=== PATIENT | male | born 1965 | race Caucasian/White ===

== ENCOUNTER 2018-09-26 02:12 | Outpatient (CLI) | payer MEDICARE, MEDICAID | END 2018-09-26 23:59 | disposition home or self-care (01) | LOC: DIABETIC 02:12 | PROVIDERS: ATTEND Internal Medicine | DX: E11.65 Type 2 diabetes mellitus with hyperglycemia (principal); E11.40 Type 2 diabetes mellitus with diabetic neuropathy, unspecified; E11.319 Type 2 diabetes mellitus with unspecified diabetic retinopathy without macular edema; E11.21 Type 2 diabetes mellitus with diabetic nephropathy; E11.43 Type 2 diabetes mellitus with diabetic autonomic (poly)neuropathy; K31.84 Gastroparesis; I11.0 Hypertensive heart disease with heart failure; I50.9 Heart failure, unspecified; R63.4 Abnormal weight loss; E78.5 Hyperlipidemia, unspecified; I67.9 Cerebrovascular disease, unspecified; I25.2 Old myocardial infarction; J44.9 Chronic obstructive pulmonary disease, unspecified | CPT/HCPCS: G0108 ==

== ENCOUNTER 2020-05-12 09:00 | Day surgery (SDC) | payer MEDICARE, MEDICAID ==
[~2020-05-12] VITALS: Ht 198.1 cm; Wt 177.3 kg
[2020-05-12 09:12] VITALS: BP 113/71
[2020-05-12] MEDS ORDERED: ASPI-611 PO (09:24)
[2020-05-12] MEDS ORDERED: OMEP40CA13 PO (09:25)
[2020-05-12] MEDS ORDERED: FLO0.4C PO (09:26)
[2020-05-12] MEDS ORDERED: CHOL20002 PO (09:27)
[2020-05-12] MEDS ORDERED: POTA8CAP20 PO (09:28)
[2020-05-12] MEDS ORDERED: ATOR80TA PO (09:28)
[2020-05-12] MEDS ORDERED: ALB0.5UD IH (09:29)
[2020-05-12] MEDS ORDERED: METF500T PO (09:29)
[2020-05-12] MEDS ORDERED: FURO-150 PO (09:30)
[2020-05-12] MEDS ORDERED: DULO30CA52 PO (09:30)
[2020-05-12] MEDS ORDERED: fentaNYL/PF 50MCG/1 ML 2ML syringe ONE (10:28)
[2020-05-12] MEDS ORDERED: MIDAZolam 1mg/ml 10ml vial ONE (10:28)
[2020-05-12 11:00] VITALS: BP 149/66
[2020-05-12 11:10] VITALS: BP 118/58
[2020-05-12 11:20] VITALS: BP 111/82
== END 2020-05-12 11:35 | disposition home or self-care (01) ==
LOC: GI LAB 09:00
PROVIDERS: ATTEND Internal Medicine Gastroenterology
DX: Z12.11 Encounter for screening for malignant neoplasm of colon (principal); K64.8 Other hemorrhoids
CPT/HCPCS: 45378; J2250; J3010; J7040; 99152; 99153; A4620

== ENCOUNTER 2020-07-13 07:56 | Inpatient (IN) | payer MEDICARE, MEDICAID ==
[2020-07-06 11:07] LABS: CLARITY,URINE SLIGHTLY CLOUDY (Clear); COLOR,URINE YELLOW (Yellow); GLUCOSE, URINE NEGATIVE (Neg); KETONES,URINE NEGATIVE (Neg); LEUKOCYTE ESTERASE ,URINE NEGATIVE (Neg); NITRITES, URINE NEGATIVE (Neg); OCCULT BLOOD,URINE NEGATIVE (Neg); PH,URINE 5.5 (4.8-8.0); PROTEIN,URINE NEGATIVE (Neg); UROBILINOGEN,URINE 0.2 E.U/dL (0.2-1.0)
[2020-07-06 11:08] LABS: BASOPHILS # (AUTO) 0.1 X10'3 (0-0.2); BASOPHILS % (AUTO) 0.9 % (0-1); EOSINOPHILS # (AUTO) 0.1 X10'3 (0-0.9); EOSINOPHILS % (AUTO) 1.4 % (0-6); LYMPHOCYTES # (AUTO) 2.2 X10'3 (1.1-4.8); LYMPHOCYTES % (AUTO) 26.3 % (21-51); MEAN CORPUSCULAR HEMOGLOBIN 30.6 PG (27.0-31.0); MEAN CORPUSCULAR HGB CONC 33.8 g/dL (33.0-36.5); MEAN CORPUSCULAR VOLUME 90.5 FL (78-98); MONOCYTES # (AUTO) 0.6 X10'3 (0-0.9); MONOCYTES % (AUTO) 7.4 % (2-12); NEUTROPHILS # (AUTO) 5.3 X10'3 (1.8-7.7); PRE OP HEMATOCRIT 49.7 % (42.0-52.0); PRE OP HEMOGLOBIN 16.8 g/dL (14.0-17.9); PRE OP PLATELET COUNT 251 X10'3 (140-440); RED BLOOD COUNT 5.49 X10'6 (4.70-6.10); RED CELL DISTRIBUTION WIDTH 13.7 % (11.5-14.5)
[2020-07-06 11:18] LABS: PRE OP INR 0.9 INR; PRE OP PROTIME 9.7 SECONDS (9.0-12.0)
[2020-07-06 11:19] LABS: ALBUMIN 3.8 G/DL (3.4-5.0); ALKALINE PHOSPHATASE 90 IU/L (46-116); BLOOD UREA NITROGEN 14 MG/DL (7-18); BUN/CREATININE RATIO 13.2 (5.4-32.0); CALCIUM 9.5 MG/DL (8.5-10.1); CHLORIDE 103 MMOL/L (99-107); CREATININE 1.06 MG/DL (0.60-1.10); PRE OP ALT 30 U/L (30-65); PRE OP ANION GAP 6 (8-16); PRE OP AST 15 U/L (10-37); PRE OP BILIRUB, TOTAL 0.5 MG/DL (0.0-1.0); PRE OP GLUCOSE 161 MG/DL (70-104); PRE OP POTASSIUM 4.4 MMOL/L (3.4-5.1); PRE OP SODIUM 137 MMOL/L (135-145); TOTAL CARBON DIOXIDE 27.6 MMOL/L (24-32); TOTAL PROTEIN 7.6 G/DL (6.4-8.2); eGFR 73 ML/MIN
[2020-07-06 11:21] LABS: UA COLLECTION TYPE CLN CATCH MIDSTREAM
[2020-07-06 11:22] LABS: BACTERIA,URINE NONE SEEN /HPF (Neg); HYALINE CASTS 0-3 /LPF (NEGATIVE); MUCUS STRANDS FEW /LPF (Neg); RBC,URINE NONE SEEN /HPF (0-2); SQUAMOUS EPITHELIAL CELL,UR FEW /LPF (FEW); WBC,URINE NONE SEEN /HPF (0-4)
[2020-07-13] VITALS (18 sets, daily range): BP systolic 120–164; BP diastolic 64–102
[~2020-07-13] VITALS: Ht 198.1 cm; Wt 181.4 kg
[~2020-07-13 07:56] MED LIST: ALB0.5UD IH; ATOR80TA PO; CHOL20002 PO; DOCU-267 PO; DULO30CA52 PO; FLO0.4C PO; FURO-150 PO; METF500T PO; OMEP-50 PO; PHEN105C47 PO; POTA8CAP20 PO; albuterol 2.5 MG/3 ML nebule NEB ONE; ceFOXitin sod/dextrose 2g/50ml 50 ML IV ONE; famotidine 20mg tablet PO ONE; ringers solution, lacted 1,000 ML IV SCH
[2020-07-13] MEDS ORDERED: BUPIVAcaine/PF 2.5 mg/ml (0.25%) 30ml vial ONE (11:02)
[2020-07-13] MEDS ORDERED: fentaNYL /PF 50mcg/ml 5ml ampule ONE (12:21)
[2020-07-13] MEDS ORDERED: midazolam 2 mg/2 ml injection ONE (12:21)
[2020-07-13] MEDS ORDERED: sevoflurane 250ml liquid IH ONE (12:35)
[2020-07-13] MEDS ORDERED: ondansetron/PF 4mg/2ml inj ONE (12:35)
[2020-07-13] MEDS ORDERED: ondansetron/PF 4mg/2ml inj IV PRN (13:30)
[2020-07-13] MEDS ORDERED: morphine 2 MG/ML inj. syringe IV PRN (13:30)
[2020-07-13] MEDS ORDERED: proCHLORperazine 10 MG/2 ml inj IV PRN (13:30)
[2020-07-13] MEDS ORDERED: morphine 4 MG/ML inj SYRINge IV PRN (13:30)
[2020-07-13] MEDS ORDERED: meperidine/PF 25mg/ml syringe IV PRN ×2 (13:30)
[2020-07-13] MEDS ORDERED: ringers solution, lacted 1,000 ML IV SCH (13:30)
[2020-07-13] MEDS ORDERED: meperidine/PF 25mg/ml syringe ONE (13:53)
--- NOTE | 2020-07-13 13:53 | NUR ---
RECEIVED FROM OR VIA BED ACCOMPANIED BY ANESTHESIOLOGIST DR VARGHESE, REPORT GIVEN. PT DROWSY BUT AROUSES EASILY AND DENIES PAIN AT THIS TIME. 20 GAUGE PIV L AC PATENT AND RUNNING LR AT 100 ML/HR. ABD SOFT WITH LG BANDAID X2 CDI, SMALL ISLAND DRESSING WITH SCANT AMOUNT OF SS DRAINAGE. PPULSES PRESENT , GOOD CAP REFILL, ABD SOFT, LOREDO, SCDS APPLIED, RESTING COMFORTABLY
--- NOTE | 2020-07-13 13:55 | NUR ---
PT EXPERIENCING NAUSEA ONLY, 4MG ZOFRAN GIVEN WITH GOOD RELIEF.
[2020-07-13] MEDS ORDERED: rocuronium 10mg/ml inj IV ONE (14:12)
[2020-07-13] MEDS ORDERED: phenylephrine 10mg/ml inj. ONE (14:12)
[2020-07-13] MEDS ORDERED: LIDOcaine 2% (20mg/ml) 5ml vial ONE (14:12)
[2020-07-13] MEDS ORDERED: glycopyrrolate 0.2mg/ml inj ONE (14:12)
[2020-07-13] MEDS ORDERED: neostigmine methylsulfate 1 MG/ML 10ml vial ONE (14:12)
[2020-07-13] MEDS ORDERED: propofol inj 20 ML IV ONE (14:12)
[2020-07-13] MEDS: meperidine/PF 25mg/ml syringe IV PRN ×2 (14:24→14:32)
--- NOTE | 2020-07-13 15:24 | NUR ---
I have received report from PEYMAN NOGUERA in recovery and had the opportunity to ask questions. Awaiting pt arrival to PCU.
--- NOTE | 2020-07-13 15:33 | NUR ---
TRANSPORTED VIA BED ACCOMPANIED BY MYSELF, REPORT GIVEN. PT AWAKE AND ALERT AND DENIES PAIN AT THIS TIME. 20 GAUGE PIV L AC PATENT AND RUNNING LR AT 100 ML/HR. ABD SOFT WITH LG BANDAID X2 CDI, SMALL ISLAND DRESSING WITH SCANT AMOUNT OF SS DRAINAGE. PPULSES PRESENT , GOOD CAP REFILL, ABD SOFT, LOREDO, SCDS APPLIED, RESTING COMFORTABLY, TOLERATING ICE CHIPS, TELE MONITER # [id number] APPLIED. LEFT IN CARE OF PCU NURSE.
--- NOTE | 2020-07-13 15:37 | NUR ---
PT ON 2 L O2 NC FROM 1400 TO 1510
--- NOTE | 2020-07-13 15:39 | NUR ---
Patient arrived to PCU, retching, and groaning of 10/10 pain to abdominal area.
[2020-07-13] MEDS: HYDROmorphone 1 mg/ml syringe IV PRN ×2 (15:42→19:13)
[2020-07-13] MEDS: ceFOXitin 1 GM/D5W 50mL IVPB 50 ML IV SCH (16:42)
[2020-07-13] MEDS: Potassium Cl inj 20 MEQ in ringers solution, lacted 1,000 ML IV SCH (16:42)
--- NOTE | 2020-07-13 16:50 | NUR ---
Unable to DART patient at this time because of extreme pain and nausea, gave Dilaudid and patient is now sleeping, will continue to monitor closely.
--- NOTE | 2020-07-13 18:10 | NUR ---
Problems reprioritized. Patient report given, questions answered & plan of care reviewed with Dominick RN.
--- NOTE | 2020-07-13 18:30 | NUR ---
Patient in room PCU 3019. I have received report from Veronica NOGUERA and had the opportunity to ask questions and assume patient care.
[2020-07-13] MEDS: metFORMIN 500mg tablet PO SCH (19:13)
[2020-07-13] MEDS: ondansetron/PF 4mg/2ml inj IV PRN (19:18)
[2020-07-14] MEDS: ceFOXitin 1 GM/D5W 50mL IVPB 50 ML IV SCH (00:10)
[2020-07-14] MEDS: HYDROcodone/acetaminophen 10/325mg tab PO PRN ×2 (00:13→12:44)
[2020-07-14 02:00] VITALS: BP 144/87
[2020-07-14] MEDS: ondansetron/PF 4mg/2ml inj IV PRN ×2 (02:05→17:41)
[2020-07-14] MEDS: Potassium Cl inj 20 MEQ in ringers solution, lacted 1,000 ML IV SCH ×2 (04:20→06:18)
[2020-07-14 06:00] VITALS: BP 134/69
[2020-07-14] MEDS: albuterol 2.5 MG/3 ML nebule NEB PRN ×2 (06:01→13:07)
--- NOTE | 2020-07-14 06:23 | NUR ---
Problems reprioritized. Patient report given, questions answered & plan of care reviewed with Nahid NOGUERA.
[2020-07-14] MEDS: atorvastatin 20mg tablet PO SCH (07:55)
[2020-07-14] MEDS: tamsulosin 0.4mg capsule PO SCH (07:55)
[2020-07-14] MEDS: duloxetine 30mg CAPSULE.DR PO SCH (07:55)
[2020-07-14] MEDS: potassium chloride 8mEq ER tablet PO SCH (07:56)
[2020-07-14] MEDS: vitamin D (cholecalciferol) 1,000 unit tablet PO SCH (07:56)
[2020-07-14] MEDS: pantoprazole 40mg Tablet.DR PO SCH (07:56)
[2020-07-14] MEDS: metFORMIN 500mg tablet PO SCH ×2 (07:56→20:09)
[2020-07-14] MEDS: furosemide 20MG tablet PO SCH (07:57)
[2020-07-14] MEDS: docusate sod 100mg capsule PO SCH (07:57)
[2020-07-14] MEDS: HYDROmorphone 1 mg/ml syringe IV PRN (07:58)
--- NOTE | 2020-07-14 10:00 | NUR ---
Pt ambulated 125 ft with FWW on 2L NC. Tolerated well. Mild ABD pain. No SOB
[2020-07-14 11:00] VITALS: BP 127/79
--- NOTE | 2020-07-14 11:15 | NUR ---
Pt ambulated 125 ft with FWW on 2L NC. Tolerated well. Mild ABD pain. No SOB
[2020-07-14 11:51] LABS: BASOPHILS # (AUTO) 0.1 X10'3 (0-0.2); BASOPHILS % (AUTO) 0.6 % (0-1); EOSINOPHILS # (AUTO) 0.1 X10'3 (0-0.9); EOSINOPHILS % (AUTO) 0.7 % (0-6); HEMATOCRIT 47.2 % (42.0-52.0); HEMOGLOBIN 15.6 g/dl (14.0-17.9); LYMPHOCYTES # (AUTO) 1.6 X10'3 (1.1-4.8); LYMPHOCYTES % (AUTO) 14.6 % (21-51); MEAN CORPUSCULAR HEMOGLOBIN 29.9 PG (27.0-31.0); MEAN CORPUSCULAR HGB CONC 33.1 g/dL (33.0-36.5); MEAN CORPUSCULAR VOLUME 90.4 FL (78-98); MEAN PLATELET VOLUME 7.9 FL (7.4-10.4); MONOCYTES # (AUTO) 1.1 X10'3 (0-0.9); MONOCYTES % (AUTO) 9.7 % (2-12); NEUTROPHILS # (AUTO) 8.1 X10'3 (1.8-7.7); NEUTROPHILS % (AUTO) 74.4 % (42-75); PLATELET COUNT 260 X10'3 (140-440); RED BLOOD COUNT 5.22 X10'6 (4.70-6.10); RED CELL DISTRIBUTION WIDTH 13.4 % (11.5-14.5); WHITE BLOOD COUNT 10.9 X10'3 (4.5-11.0)
[2020-07-14 11:58] LABS: ALBUMIN 3.2 G/DL (3.4-5.0); ANION GAP 5 (8-16); BLOOD UREA NITROGEN 13 MG/DL (7-18); BUN/CREATININE RATIO 11.3 (5.4-32.0); CALCIUM 8.6 MG/DL (8.5-10.1); CHLORIDE 101 MMOL/L (99-107); CREATININE 1.15 MG/DL (0.60-1.10); GLUCOSE 165 MG/DL (70-104); POTASSIUM 4.2 MMOL/L (3.5-5.1); SODIUM 136 MMOL/L (135-145); TOTAL CARBON DIOXIDE 29.8 MMOL/L (24-32); eGFR 67 ML/MIN
[2020-07-14] MEDS ORDERED: magnesium hydroxide 30ml (MOM) UD suspension PO ONE (12:00)
[2020-07-14] MEDS: ceFOXitin 2GM-NS 100mL ADDvant 100 ML IV SCH ×2 (14:37→20:09)
[2020-07-14 15:00] VITALS: BP 126/58
--- NOTE | 2020-07-14 17:15 | NUR ---
Pt ambulated 125 ft with FWW on 2L NC. Tolerated well. Mild ABD pain. No SOB
[2020-07-14 18:00] VITALS: BP 125/50
--- NOTE | 2020-07-14 18:20 | NUR ---
Patient in room PCU 3019. I have received report from Nahid NOGUERA and had the opportunity to ask questions and assume patient care.
--- NOTE | 2020-07-14 18:25 | NUR ---
Problems reprioritized. Patient report given, questions answered & plan of care reviewed with Cherrie NOGUERA.
[2020-07-14 22:00] VITALS: BP 140/73
[2020-07-15 02:00] VITALS: BP 141/67
[2020-07-15] MEDS: ceFOXitin 2GM-NS 100mL ADDvant 100 ML IV SCH ×3 (02:00→14:39)
[2020-07-15 06:00] VITALS: BP 156/63
--- NOTE | 2020-07-15 06:10 | NUR ---
Patient in room PCU 3019. I have received report from Cherrie NOGUERA and had the opportunity to ask questions and assume patient care.
--- NOTE | 2020-07-15 06:23 | NUR ---
Problems reprioritized. Patient report given, questions answered & plan of care reviewed with Nahid NOGUERA.
[2020-07-15] MEDS: vitamin D (cholecalciferol) 1,000 unit tablet PO SCH (07:18)
[2020-07-15] MEDS: docusate sod 100mg capsule PO SCH (07:18)
[2020-07-15] MEDS: duloxetine 30mg CAPSULE.DR PO SCH (07:18)
[2020-07-15] MEDS: potassium chloride 8mEq ER tablet PO SCH (07:18)
[2020-07-15] MEDS: atorvastatin 20mg tablet PO SCH (07:18)
[2020-07-15] MEDS: tamsulosin 0.4mg capsule PO SCH (07:18)
[2020-07-15] MEDS: furosemide 20MG tablet PO SCH (07:18)
[2020-07-15] MEDS: pantoprazole 40mg Tablet.DR PO SCH (07:19)
[2020-07-15] MEDS: metFORMIN 500mg tablet PO SCH (07:19)
--- NOTE | 2020-07-15 07:22 | NUR ---
0200 dose of IV Cefoxitin 2Gm not administered by NOC Nurse. 0200 dose labeled as Not Administered. Will administer the 0800 dose.
[2020-07-15] MEDS: albuterol 2.5 MG/3 ML nebule NEB PRN (08:42)
[2020-07-15 11:00] VITALS: BP 148/76
[2020-07-15] MEDS: ondansetron/PF 4mg/2ml inj IV PRN (12:39)
[2020-07-15 15:00] VITALS: BP 121/69
[2020-07-15] MEDS ORDERED: HYDR-4383 PO (16:44)
[2020-07-15] MEDS ORDERED: AMOX-580 PO (16:44)
[2020-07-15] MEDS ORDERED: amox tr/potassium clavulanate 875/125mg TAB PO SCH (17:30)
--- NOTE | 2020-07-15 17:40 | NUR ---
Pt DC'd home with family. IV removed, canula intact. Tele-box removed and returned to tele-tech. Pt alert and oriented and vitals WNL upon DC. Per Dr. Urena, Pt is stable for DC. DC paperwork gone over with Pt, allowed Pt to ask questions cocnernign DC and then answered them. New prescriptions called into [facility] in [facility]. Instructions to call Dr. Tavera's office on Sunday and schedule a follow up Appt gone over with Pt. Pt's belongings gathered and sent with Pt. Pt wheeled down to lobby in wheelchair. Pt left in private vehicle with family for home.
[2020-07-15] MEDS ORDERED: lactobacillus rhamnosus 10,000 MMU CELLS/CAPSULE PO SCH (20:00)
--- NOTE | 2020-07-16 10:20 | NUR ---
Case management DC follow up: LM/VM re post lap-appendectomy DC status, questions, concerns
== END 2020-07-15 18:09 | disposition home or self-care (01) | DRG 339 ==
LOC: PRE-OP 07:56 → PCU 3S 14:08 → OBSVTOIN 07-15 14:00
PROVIDERS: ADMIT Surgery; ATTEND Surgery
PROC: 0DTJ4ZZ Resection of Appendix, Percutaneous Endoscopic Approach (ICD-10-PCS; principal; 2020-07-13 12:35)
DX: K35.33 Acute appendicitis with perforation, localized peritonitis, and gangrene, with abscess (principal); K56.7 Ileus, unspecified; Z79.84 Long term (current) use of oral hypoglycemic drugs; Z79.899 Other long term (current) drug therapy
CPT/HCPCS: 36415; 71046; 76937; 80048; 80053; 81001; 82948; 85025; 85610; 85730; 87635; 93005; 94640; 94760; A4215; A4314; A4618; A7000; G0378; J0694; J1170; J2001; J2175; J2250; J2370; J2405; J2704; J2710; J3010; J3480; J3490; J7120

== ENCOUNTER 2024-03-21 10:34 | Outpatient (CLI) | payer MEDICARE, MEDICAID ==
[~2024-03-21 10:34] MED LIST changes: +AMOX-580 PO; +HYDR-4383 PO; -OMEP-50 PO; +OMEP20CA16 PO; -PHEN105C47 PO; +[UNRECOGNIZED DRUG - CODE] PO; -albuterol 2.5 MG/3 ML nebule NEB ONE; -ceFOXitin sod/dextrose 2g/50ml 50 ML IV ONE; -famotidine 20mg tablet PO ONE; -ringers solution, lacted 1,000 ML IV SCH
== END 2024-03-21 23:59 | disposition home or self-care (01) ==
LOC: RAD 10:34
PROVIDERS: ATTEND Family Medicine
DX: M25.552 Pain in left hip (principal)
CPT/HCPCS: 73502